=== PATIENT | female | born 1970 | race Caucasian/White ===

== ENCOUNTER 2017-12-10 09:16 | Emergency (ER) | payer OTHER ==
[2017-12-10] MEDS ORDERED: ONDANSETRON 4 MG/2 ML VIAL ONE (10:05)
[2017-12-10] MEDS ORDERED: NS 1,000 ML IV ONE (10:08)
[2017-12-10] MEDS ORDERED: PROMETHAZINE HCL 25 MG/ML INJ IVP ONE ×2 (10:08→12:16)
[2017-12-10 10:16] LABS: PLATELET COUNT 273 10^3/uL (150-400)
--- NOTE | 2017-12-10 11:12 | EDPHY ---
H & P Stated Complaint: n/v/d Source: Patient Exam Limitations: No limitations - Personal History LMP (Females 10-55): 8-14 Days Ago Current Tetanus/Diphtheria Vaccine: Unsure Current Tetanus Diphtheria and Acellular Pertussis (TDAP): Unsure - Medical/Surgical History Hx Asthma: No Hx Chronic Respiratory Disease: No Hx Diabetes: No Hx Cardiac Disease: No Hx Renal Disease: No Hx Cirrhosis: No Hx Alcoholism: No Hx HIV/AIDS: No Hx Splenectomy or Spleen Trauma: No Other PMH: depression, breast reduction - Social History Smoking Status: Never smoked Time Seen by Provider: 12/10/17 10:07 HPI/ROS: HPI: This is a 46-year-old female who presents with Chief Complaint: Nausea, vomiting, diarrhea Location: GI Quality: Nausea, vomiting, diarrhea Duration: Since around 2:00 a.m. This morning Signs and Symptoms: no fever,+ nausea, + vomiting, no hematemesis, no blood in stool, no abdominal bloating, + diarrhea, no back pain, no urinary symptoms, no vaginal bleeding/discharge, no indigestion, no chest pain, no shortness of breath Timing: Acute, intermittent episodes Severity: [id number] Context: Patient presents with waking up this morning around 6:00 a.m. With nausea and several episodes of vomiting and loose stool. She reports periumbilical cramping. LMP 2 weeks ago. Patient became concerned as he she tried to drink water and was unable to keep it down this morning. No recent foreign travel. Has been traveling quite extensively within the [place] No recent antibiotic use or camping trips. Ate a salad from [employer] last night. Modifying Factors: None Comment: ROS: A comprehensive 10 system review of systems is otherwise negative aside from elements mentioned in the history of present illness. MEDICAL/SURGICAL/SOCIAL HISTORY: Medical history: Depression Surgical history: Breast reduction Social history: . Family history noncontributory. CONSTITUTIONAL: Pleasant and cooperative, nontoxic-appearing adult white female , awake and alert, no obvious distress HEENT: Atraumatic and normocephalic, PERRL, EOMI. Nares patent; no rhinorrhea; no nasal mucosal edema. Tympanic membranes clear. Oropharynx clear, no exudate and moist pink mucosa. Airway patent. No lymphadenopathy. No meningismus. Cardiovascular: Normal S1/S2, regular rate, regular rhythm, without murmur rub or gallop. PULMONARY/CHEST: Symmetrical and nontender. Clear to auscultation bilaterally. Good air movement. No accessory muscle usage. ABDOMEN: Soft, nondistended, mild right upper quadrant tenderness, no rebound, no guarding, no peritoneal signs, no masses or organomegaly. No CVAT. Hyperactive bowel sounds heard x4. EXTREMITIES: 2/2 pulses, strength 5/5, no deformities, no clubbing, no cyanosis or edema. NEUROLOGICAL: no focal neuro deficits. GCS 15. SKIN: Warm and dry, no erythema. no rash. Good capillary refill. (Karen Duckworth) Constitutional: Initial Vital Signs Temperature (C) 37.2 C 12/10/17 09:22 Heart Rate 80 12/10/17 09:22 Respiratory Rate 16 12/10/17 09:22 Blood Pressure 122/102 H 12/10/17 09:22 O2 Sat (%) 99 12/10/17 09:22 O2 Delivery Mode Room Air Allergies/Adverse Reactions: Sulfa (Sulfonamide Antibiotics) Allergy (Verified 12/10/17 09:22) Home Medications: Medication Instructions Recorded Ondansetron Odt [Zofran Odt 4 mg 4 mg PO Q4 PRN #12 tab 12/10/17 (*)] Promethazine HCl [Phenergan 12.5mg 12.5 mg PO Q6 PRN #12 tablet 12/10/17 tab] Prozac 10 MG (*) 12/10/17 Medical Decision Making - Diagnostics Imaging Results: Imaging Impressions Abdomen Ultrasound 12/10/17 10:17 Impression: 1. No acute findings in the abdomen. 2. Benign hepatic cysts. Findings discussed with Karen Duckworth 12/10/2017 at 11:13. ED Course/Re-evaluation: I did not see this patient while she was in the emergency department. However her care was discussed with the PA while the patient was in the department. I agree with treatment plan and management (Collin Ruiz) Vital signs reviewed and stable upon arrival. No systemic signs. IV access obtained, laboratory studies, ultrasound, IV fluids, IV medications ordered Given 2 L normal saline, p.o. Zofran, IV promethazine 12.5 mg 1112: Laboratory studies reviewed. No signs of anemia/platelet dysfunction/HALIMA /elevated LFTs/electrolyte imbalance/pancreatitis. Mild leukocytosis of WBC 10.76 with left shift. 1115: Called by Radiology, Dr. Crowder, who reports gallbladder ultrasound is unremarkable. Reassessed patient reports relief of symptoms. Passed p.o. Trial. 1215: Reports continued nausea. IV promethazine 12.5 mg given 1300: Reassessed patient who reports comfortable to be discharged home at this time. Prescription for Zofran and promethazine given. Advised supportive care. This patient was seen under the supervision of my secondary supervising physician. I evaluated care for this patient independently. Discussed this patient with Dr. Ruiz. (Karen Duckworth) Differential Diagnosis: Abdominal pain including but not limited to appendicitis, cholecystitis, gastritis and urinary tract infection. (Karen Duckworth) - Data Points Laboratory Results: Laboratory Results 12/10/17 10:05 12/10/17 10:05 12/10/17 12/10/17 12/10/17 10:05 10:05 10:05 WBC 10.76 10^3/uL H 10^3/uL (3.80-9.50) RBC 5.10 10^6/uL 10^6/uL (4.18-5.33) Hgb 14.9 g/dL g/dL (12.6-16.3) Hct 43.9 % % (38.0-47.0) MCV 86.1 fL fL (81.5-99.8) MCH 29.2 pg pg (27.9-34.1) MCHC 33.9 g/dL g/dL (32.4-36.7) RDW 13.5 % % (11.5-15.2) Plt Count 273 10^3/uL 10^3/uL (150-400) MPV 9.2 fL fL (8.7-11.7) Neut % (Auto) 89.4 % H % (39.3-74.2) Lymph % (Auto) 6.5 % L % (15.0-45.0) [place] % (Auto) 3.3 % L % (4.5-13.0) Eos % (Auto) 0.4 % L % (0.6-7.6) Baso % (Auto) 0.2 % L % (0.3-1.7) Nucleat RBC Rel Count 0.0 % % (0.0-0.2) Absolute Neuts (auto) 9.62 10^3/uL H 10^3/uL (1.70-6.50) Absolute Lymphs (auto) 0.70 10^3/uL L 10^3/uL (1.00-3.00) Absolute Monos (auto) 0.36 10^3/uL 10^3/uL (0.30-0.80) Absolute Eos (auto) 0.04 10^3/uL 10^3/uL (0.03-0.40) Absolute Basos (auto) 0.02 10^3/uL 10^3/uL (0.02-0.10) Absolute Nucleated RBC 0.00 10^3/uL 10^3/uL (0-0.01) Immature Gran % 0.2 % % (0.0-1.1) Immature Gran # 0.02 10^3/uL 10^3/uL (0.00-0.10) Sodium 139 mEq/L mEq/L (135-145) Potassium 4.3 mEq/L mEq/L (3.3-5.0) Chloride 105 mEq/L mEq/L (97-110) Carbon Dioxide 23 mEq/l mEq/l (22-31) Anion Gap 11 mEq/L mEq/L (6-14) BUN 14 mg/dL mg/dL (7-23) Creatinine 0.7 mg/dL mg/dL (0.6-1.0) Estimated GFR > 60 Glucose 90 mg/dL mg/dL (70-100) Calcium 9.5 mg/dL mg/dL (8.5-10.4) Total Bilirubin 0.6 mg/dL mg/dL (0.1-1.4) Conjugated Bilirubin 0.2 mg/dL mg/dL (0.0-0.5) Unconjugated Bilirubin 0.4 mg/dL mg/dL (0.0-1.1) AST 34 IU/L IU/L (14-46) ALT 34 IU/L IU/L (9-52) Alkaline Phosphatase 65 IU/L IU/L (38-126) Total Protein 7.9 g/dL g/dL (6.3-8.2) Albumin 4.4 g/dL g/dL (3.5-5.0) Lipase 101 IU/L IU/L (23-300) Beta HCG, Qual NEGATIVE Medications Given: Discontinued Medications Sodium Chloride (Ns) 1,000 mls @ 0 mls/hr IV EDNOW ONE; Wide Open PRN Reason: Protocol Stop: 12/10/17 10:09 Last Admin: 12/10/17 10:30 Dose: 1,000 mls Promethazine HCl (Phenergan) 12.5 mg IVP EDNOW ONE Stop: 12/10/17 10:09 Last Admin: 12/10/17 11:00 Dose: 12.5 mg Promethazine HCl (Phenergan) 12.5 mg IVP ONCE ONE Stop: 12/10/17 12:17 Last Admin: 12/10/17 12:25 Dose: 12.5 mg Departure - Departure Disposition: Home, Routine, Self-Care Clinical Impression: Gastroenteritis Condition: Good Instructions: Gastroenteritis (ED) Additional Instructions: Ultrasound today shows no gallbladder abnormality. Consume a minimum of 8-10 glasses of water or electrolyte fluid replacement drinks that include Gatorade, Powerade, Pedialyte. Eat a bland diet for the next 48 hours and then slowly advance as tolerated. Take Zofran 1 tab every 4 hours as needed for nausea, vomiting. Take promethazine 1 tab every 4-6 hours as needed for nausea, vomiting not relieved by Zofran. Return to the Emergency Room if symptoms do not resolve in the next 48-72 hours , you spike a fever > 102 F, or experience intractable abdominal pain/nausea/ vomiting. Referrals: Liana Salazar MD [Primary Care Provider] - 3-4 days, if not improved Prescriptions: Ondansetron Odt [Zofran Odt 4 mg (*)] 4 mg PO Q4 PRN #12 tab PRN Reason: Nausea/Vomiting, Use 1st Promethazine HCl [Phenergan 12.5mg tab] 12.5 mg PO Q6 PRN #12 tablet PRN Reason: Nausea/Vomiting, Use 2nd
[2017-12-10 14:14] VITALS: BP 113/67
== END 2017-12-10 14:13 | disposition home or self-care (01) ==
DX: K52.9 Noninfective gastroenteritis and colitis, unspecified (principal); E86.9 Volume depletion, unspecified
CPT/HCPCS: 96374; J2405; J2550

== ENCOUNTER 2018-08-06 22:04 | Emergency (ER) | payer OTHER | END 2018-08-07 01:11 | disposition home or self-care (01) ==